=== PATIENT | male | born 1960 | race Caucasian/White ===

== ENCOUNTER 2021-04-22 08:12 | Day surgery (SDC) | payer MEDICAID ==
[2021-04-22] VITALS (9 sets, daily range): BP systolic 116–142; BP diastolic 60–77
[~2021-04-22] VITALS: Ht 160 cm; Wt 94.8 kg
[2021-04-22] MEDS ORDERED: normal saline 1000ml 1,000 ML IV SCH (08:35)
[2021-04-22 08:44] LABS: ALBUMIN 1.9 G/DL (3.4-5.0); ANION GAP 15 (8-16); BLOOD UREA NITROGEN 61 MG/DL (7-18); BUN/CREATININE RATIO 10.3 (5.4-32.0); CALCIUM 8.2 MG/DL (8.5-10.1); CHLORIDE 103 MMOL/L (99-107); GLUCOSE 112 MG/DL (70-104); POTASSIUM 4.3 MMOL/L (3.5-5.1); SODIUM 140 MMOL/L (135-145); TOTAL CARBON DIOXIDE 22.2 MMOL/L (24-32); eGFR 10 ML/MIN
[2021-04-22] MEDS ORDERED: heparin 1,000unit/ml 10ml vial 10 ML ONE (08:59)
[2021-04-22] MEDS ORDERED: LIDOcaine 1%/PF 5ML 10 MG/ML VIAL ONE (08:59)
[2021-04-22] MEDS ORDERED: midazolam 1 mg/ML 2ml injection ONE (08:59)
[2021-04-22] MEDS ORDERED: fentaNYL/PF 50MCG/1 ML 2ML syringe ONE (08:59)
[2021-04-22 09:08] LABS: BASOPHILS # (AUTO) 0.1 X10'3 (0-0.2); BASOPHILS % (AUTO) 0.7 % (0-1); EOSINOPHILS # (AUTO) 0.5 X10'3 (0-0.9); EOSINOPHILS % (AUTO) 2.7 % (0-6); HEMATOCRIT 25.2 % (42.0-52.0); HEMOGLOBIN 7.9 g/dl (14.0-17.9); LYMPHOCYTES # (AUTO) 1.3 X10'3 (1.1-4.8); LYMPHOCYTES % (AUTO) 6.8 % (21-51); MEAN CORPUSCULAR HEMOGLOBIN 25.7 PG (27.0-31.0); MEAN CORPUSCULAR HGB CONC 31.5 g/dL (33.0-36.5); MEAN CORPUSCULAR VOLUME 81.7 FL (78-98); MEAN PLATELET VOLUME 7.9 FL (7.4-10.4); MONOCYTES % (AUTO) 5.2 % (2-12); NEUTROPHILS # (AUTO) 15.8 X10'3 (1.8-7.7); NEUTROPHILS % (AUTO) 84.6 % (42-75); PLATELET COUNT 563 X10'3 (140-440); RED BLOOD COUNT 3.08 X10'6 (4.70-6.10); RED CELL DISTRIBUTION WIDTH 17.1 % (11.5-14.5); WHITE BLOOD COUNT 18.6 X10'3 (4.5-11.0)
[2021-04-22] MEDS ORDERED: METR-159 PO (09:52)
[2021-04-22] MEDS ORDERED: CYCL5TAB PO (09:52)
[2021-04-22] MEDS ORDERED: ATOR80TA PO (09:52)
[2021-04-22] MEDS ORDERED: FURO-149 PO (09:52)
[2021-04-22] MEDS ORDERED: ALB0.5UD NEB (09:52)
[2021-04-22] MEDS ORDERED: CALC300T4 PO (09:52)
[2021-04-22] MEDS ORDERED: AMLO2.5T2 PO (09:52)
[2021-04-22] MEDS ORDERED: SENN-263 PO (09:52)
[2021-04-22] MEDS ORDERED: INSU100V43 SQ (09:52)
[2021-04-22] MEDS ORDERED: CEFT2VIA13 IV (09:52)
[2021-04-22] MEDS ORDERED: DOCU-148 PO (09:52)
[2021-04-22] MEDS ORDERED: DAPT500V IV (09:52)
[2021-04-22] MEDS ORDERED: GABA300C PO (09:52)
[2021-04-22] MEDS ORDERED: SODI325T PO (09:52)
[2021-04-22] MEDS ORDERED: FLO0.4C PO (09:52)
[2021-04-22] MEDS ORDERED: CHOL20004 PO (09:52)
[2021-04-22] MEDS ORDERED: ACET-1123 PO (09:52)
[2021-04-22] MEDS ORDERED: CYAN250014 PO (09:52)
[2021-04-22] MEDS ORDERED: LACT1CAP67 PO (09:52)
[2021-04-22] MEDS ORDERED: ATR0.5NEB IH (09:52)
[2021-04-22] MEDS ORDERED: MULT-1121 PO (09:52)
[2021-04-22] MEDS ORDERED: OMEP40CA13 PO (09:52)
[2021-04-22] MEDS ORDERED: MELA3TAB39 PO (09:52)
[2021-04-22] MEDS ORDERED: ENOX40DI8 SQ (09:52)
[2021-04-22 11:24] LABS: ANISOCYTOSIS 1+; PLATELET ESTIMATE INCREASED
== END 2021-04-22 14:24 ==
LOC: SSTAY O 08:12
PROVIDERS: ATTEND Radiology Vascular & Interventional Radiology
DX: I12.0 Hypertensive chronic kidney disease with stage 5 chronic kidney disease or end stage renal disease (principal); E11.22 Type 2 diabetes mellitus with diabetic chronic kidney disease; N18.6 End stage renal disease; Z89.421 Acquired absence of other right toe(s); E11.51 Type 2 diabetes mellitus with diabetic peripheral angiopathy without gangrene
CPT/HCPCS: 36415; 36556; 71045; 76937; 80048; 85008; 85025; C1751; C1894; J1644; J2250; J3010; A9270

== ENCOUNTER 2021-05-07 13:22 | Day surgery (SDC) | payer MEDICAID ==
[~2021-05-07] VITALS: Ht 160 cm; Wt 95.0 kg
--- NOTE | 2021-05-07 11:00 | NUR ---
Called [facility] and spoke with patient's nurse Amira. Reviewed patient's current medications and when he last received each medication.
[~2021-05-07 13:22] MED LIST: ACET-1123 PO; ALB0.5UD NEB; AMLO2.5T2 PO; ATOR80TA PO; ATR0.5NEB IH; CALC300T4 PO; CEFT2VIA13 IV; CHOL20004 PO; CYAN250014 PO; CYCL5TAB PO; DAPT500V IV; DOCU-148 PO; ENOX40DI8 SQ; FLO0.4C PO; FURO-149 PO; GABA300C PO; HEPA500017 SUBCUT; INSU100V43 SQ; LACT1CAP77 PO; MELA3TAB39 PO; METR-159 PO; MULT-1121 PO; OMEP40CA21 PO; SENN-263 PO; SODI325T PO
[2021-05-07 14:00] VITALS: BP 125/57
[2021-05-07] MEDS ORDERED: LIDOcaine 1%/PF 5ML 10 MG/ML VIAL ONE (16:17)
[2021-05-07] MEDS ORDERED: midazolam 1 mg/ML 2ml injection ONE (16:17)
[2021-05-07] MEDS ORDERED: heparin 1,000unit/ml 10ml vial 10 ML ONE (16:17)
[2021-05-07] MEDS ORDERED: fentaNYL/PF 50MCG/1 ML 2ML syringe ONE (16:17)
[2021-05-07] MEDS ORDERED: ceFAZolin/D5W- 1GM premix 50 ML IV ONE (17:05)
[2021-05-07 17:40] VITALS: BP 138/65
[2021-05-07 17:52] VITALS: BP 138/65
[2021-05-07 17:55] VITALS: BP 150/76
[2021-05-07 18:00] VITALS: BP 134/66
== END 2021-05-07 18:15 | disposition home or self-care (01) ==
LOC: SSTAY O 13:22
PROVIDERS: ATTEND Radiology Vascular & Interventional Radiology
DX: N18.6 End stage renal disease (principal); Z79.899 Other long term (current) drug therapy
CPT/HCPCS: 36415; 36558; 76937; 77001; 82948; 85610; 99152; 99153; C1750; C1769; C1894; J1644; J2250; J3010; A9270